=== PATIENT | male | born 1995 | race Caucasian/White ===

== ENCOUNTER 2016-08-14 17:02 | Emergency (ER) | payer SELFPAY ==
--- NOTE | 2016-08-14 17:26 | ER Document Report ---
ED Medical Screen (RME) - General Stated Complaint: POSSIBLE SEIZURE Notes: 4pm in the afternoon fainted no h/o seizures has not been drinking fluids the past two days no headache, no confusion No past medical history, no medications ,no past surgical history - Related Data Allergies/Adverse Reactions: No Known Allergies Allergy (Verified 08/14/16 17:18)
[2016-08-14 18:18] LABS: ABSOLUTE EOSINOPHILS # (AUTO) 0.1 10^3/uL (0.0-0.6); ABSOLUTE LYMPHOCYTES (AUTO) 0.9 10^3/uL (0.5-4.7); ABSOLUTE MONOCYTES (AUTO) 0.8 10^3/uL (0.1-1.4); ABSOLUTE NEUT (AUTO) 9.6 10^3/uL (1.7-8.2); BASOPHILS % (AUTO) 0.2 % (0-2); EOSINOPHILS % (AUTO) 0.7 % (0-6); HEMATOCRIT 44.6 % (37.9-51.0); HEMOGLOBIN 14.9 g/dL (13.5-17.0); HGB HCT DIFFERENCE 0.1; LYMPHOCYTES % (AUTO) 7.8 % (13-45); MEAN CORPUSCULAR HEMOGLOBIN 27.1 pg (27.0-33.4); MEAN CORPUSCULAR HGB CONC 33.5 g/dL (32.0-36.0); MEAN CORPUSCULAR VOLUME 81 fl (80-97); MONOCYTES % (AUTO) 6.8 % (3-13); RED BLOOD COUNT 5.52 10^6/uL (4.35-5.55); RED CELL DISTRIBUTION WIDTH 13.1 % (11.5-14.0); SEGMENTED NEUTROPHILS % (AUTO) 84.5 % (42-78); WHITE BLOOD COUNT 11.3 10^3/uL (4.0-10.5)
[2016-08-14 18:42] LABS: ALANINE AMINOTRANSFERASE 62 U/L (21-72); ALBUMIN 4.3 g/dL (3.5-5.0); ALKALINE PHOSPHATASE 61 U/L (38-126); ANION GAP 11 (5-19); ASPARTATE AMINO TRANSFERASE 34 U/L (17-59); BILIRUBIN,TOTAL 0.6 mg/dL (0.2-1.3); BLOOD UREA NITROGEN 10 mg/dL (7-20); CALCIUM 9.2 mg/dL (8.4-10.2); CARBON DIOXIDE 28 mmol/L (22-30); CHLORIDE 101 mmol/L (98-107); CREATININE RESULT 0.95 mg/dL (0.52-1.25); GLUCOSE 93 mg/dL (75-110); POTASSIUM 4.2 mmol/L (3.6-5.0); SODIUM 140.4 mmol/L (137-145); TOTAL PROTEIN 7.1 g/dL (6.3-8.2)
[2016-08-14 20:45] LABS: APPEARANCE,URINE CLEAR; BILIRUBIN,URINE NEGATIVE (NEGATIVE); GLUCOSE, URINE NEGATIVE (NEGATIVE); KETONES,URINE NEGATIVE (NEGATIVE); LEUKOCYTE ESTERASE,URINE NEGATIVE (NEGATIVE); NITRITE,URINE NEGATIVE (NEGATIVE); PROTEIN,URINE NEGATIVE (NEGATIVE); URINE SPECIFIC GRAVITY 1.014; UROBILINOGEN,URINE NEGATIVE mg/dL (<2.0)
[2016-08-14 22:06] LABS: URINE BARBITURATES SCREEN NEGATIVE; URINE METHADONE SCREEN NEGATIVE; URINE PHENCYCLIDINE SCREEN NEGATIVE
--- NOTE | 2016-08-14 22:54 | ER Document Report ---
[id number] 4d Patient TRAVEL OUTSIDE OF THE [place] IN LAST 30 DAYS: No - HPI Patient complains to provider of: Fainting <FELICIA RAO - Last Filed: 08/15/16 00:23> <NARESH MELARA - Last Filed: 08/17/16 01:24> - General Chief Complaint: Passed Out Prior to Arrival Stated Complaint: POSSIBLE SEIZURE Time Seen by Provider: 08/14/16 17:19 Notes: Patient is a 21-year-old male that presents to the emergency department today with complaints of a questionable seizure or syncopal episode prior to arrival. Patient states he was at work, he felt dizzy, "things got loud", and the next thing he remembers he woke up on the floor in a tipped over chair. Mother at bedside also works in close proximity to the patient, she states he was " foaming at the mouth" and seemed disoriented. Patient states he has 1/10 low back pain from the fall. Patient denies a history of seizures. Patient had no chest pain or shortness of breath prior to this episode or after this episode. ( FELICIA RAO) - Related Data Allergies/Adverse Reactions: No Known Allergies Allergy (Verified 08/14/16 17:18) Past Medical History - General Information source: Patient - Social History Smoking Status: Unknown if Ever Smoked Chew tobacco use (# tins/day): No Frequency of alcohol use: Occasional Drug Abuse: None Lives with: Family Family History: Reviewed & Not Pertinent Patient has suicidal ideation: No Patient has homicidal ideation: No - Medical History Medical History: Negative Surgical Hx: Negative <FELICIA RAO - Last Filed: 08/15/16 00:23> Review of Systems - Review of Systems Constitutional: No symptoms reported EENT: No symptoms reported Cardiovascular: See HPI, Syncope. denies: Chest pain Respiratory: denies: Short of breath Gastrointestinal: No symptoms reported Genitourinary: No symptoms reported Male Genitourinary: No symptoms reported Musculoskeletal: No symptoms reported Skin: No symptoms reported Hematologic/Lymphatic: No symptoms reported Neurological/Psychological: See HPI, Seizure - possible?, Headaches - after episode -: Yes All other systems reviewed and negative <FELICIA RAO - Last Filed: 08/15/16 00:23> Physical Exam <FELICIA RAO - Last Filed: 08/15/16 00:23> <NARESH MELARA - Last Filed: 08/17/16 01:24> - Vital signs Vitals: Temp Pulse Resp BP Pulse Ox 97.6 F 107 H 20 181/83 H 96 08/14/16 17:23 08/14/16 17:23 08/14/16 17:23 08/14/16 17:23 08/14/16 17:23 (FELICIA RAO) (NARESH MELARA) - Notes Notes: Physical Exam: General: Alert, appears well. HEENT: Normocephalic. Atraumatic. PERRL. Extraocular movements intact. Oropharynx clear. Neck: Supple. Non-tender. Respiratory: No respiratory distress. Clear and equal breath sounds bilaterally. Cardiovascular: Regular rate and rhythm. Abdominal: Normal Inspection. Non-tender. No distension. Normal Bowel Sounds. Back: Non-tender. No deformity or step off. Extremities: Moves all four extremities. Upper extremities: Normal inspection. Non-tender.Normal ROM. Lower extremities: Normal inspection.No edema. Normal ROM. Neurological: Normal cognition. AAOx4. Normal speech. Psychological: Normal affect. Normal Mood. Skin: Warm. Dry. Normal color. (FELICIA RAO) Course - Laboratory Result Diagrams: 08/14/16 17:49 08/14/16 17:49 <FELICIA RAO - Last Filed: 08/15/16 00:23> - Laboratory Result Diagrams: 08/14/16 17:49 08/14/16 17:49 <NARESH MELARA - Last Filed: 08/17/16 01:24> - Re-evaluation Re-evalutation: 08/14/16 23:04 I personally performed the services described in the documentation, reviewed and edited the documentation which was dictated to my scribe in my presence, and it accurately records my words and actions. Patient presents the emergency department after an episode of passing out. Patient was feeling normal sitting and is best that he had eaten all day follow lightheaded and dizzy next thing he knew he was on the ground there was a bunch people around him. His mom who works in the mall 70 feet away said the security door installer came and got her when she got there he had some saliva on his salazar and was confused for a brief period of time they did not witness seizure activity nor was he incontinent. Does not have a history of a seizure disorder he denied any chest pain trouble breathing headache prior to the event. He denies any headache blurred vision double vision chest pain or shortness of breath. On examination he is well-appearing nontoxic in no acute distress vital signs are stable no neurological deficits normal exam. EKG is nonacute. tachycardic on exam. mother on coumadin with history factor 5 deficiency. Negative acute PE study. Patient well-appearing nontoxic episode is either seizure or syncope. No acute cardiac arrhythmias chest pain or pulmonary emboli we'll DC 1-2 day primary care follow-up and discuss reasons for ED return sooner 08/15/16 00:12 (NARESH MELARA) - Vital Signs Vital signs: Temp Pulse Resp BP Pulse Ox 98.0 F 93 14 173/103 H 99 08/15/16 00:25 08/15/16 00:25 08/15/16 00:25 08/15/16 00:25 08/15/16 00:25 (FELICIA RAO) (NARESH MELARA) - Laboratory Laboratory results interpreted by me: 08/14/16 17:49 WBC 11.3 H Seg Neutrophils % 84.5 H Lymphocytes % 7.8 L Absolute Neutrophils 9.6 H (FELICIA RAO) (NARESH MELARA) Discharge <FELICIA RAO - Last Filed: 08/15/16 00:23> <NARESH MELARA - Last Filed: 08/17/16 01:24> - Discharge Clinical Impression: syncope versus seizure Condition: Stable Disposition: HOME, SELF-CARE Additional Instructions: Syncopal Episode versus seizure Syncope (fainting or near-fainting) can occur from many different health problems. Or it can be a simple fainting spell requiring no treatment. It is safe for you to go home, but further evaluation will likely be necessary. Your work-up may include tests for internal bleeding, heart disease, medication problems, or near-strokes. Tests are not always required, however, depending on the nature of your problem. The warning signs of an impending faint include: dizziness, lightheadedness , nausea, hot flashes, tingling, and weakness. If this happens, lay down and put your feet up, then wait until all of these symptoms have passed before standing up again. If these episodes become recurrent, or if you develop chest pain, heart palpitations, mental confusion, blurred vision, or headache, then you should call the physician, or go to the emergency room. Referrals: [facility] [Provider Group] - Follow up in 3-5 days (in 2-3 days return to er sooner for increasing worsening or new symptoms) Scribe Documentation <FELICIA RAO - Last Filed: 08/15/16 00:23> <NARESH MELARA - Last Filed: 08/17/16 01:24> - Scribe Written by Scribe:: Leon (FELICIA RAO)
[2016-08-15 00:33] VITALS: BP 173/103
--- NOTE | 2016-08-15 07:58 | EKG REPORT ---
SEVERITY:- NORMAL ECG - SINUS RHYTHM : Confirmed by: Kota Wills MD 15-Aug-2016 07:57:27
== END 2016-08-15 00:15 | disposition home or self-care (01) ==
LOC: ER 17:02
DX: R42 Dizziness and giddiness (principal); M54.5 Low back pain; W19.XXXA Unspecified fall, initial encounter; Y92.59 Other trade areas as the place of occurrence of the external cause; Y99.0 Civilian activity done for income or pay; Z83.2 Family history of diseases of the blood and blood-forming organs and certain disorders involving the immune mechanism
CPT/HCPCS: 36415; 70450; 71010; 71260; 80053; 80307; 81001; 85025; 93005; 93010; 99285

== ENCOUNTER 2017-03-26 10:30 | Emergency (ER) | payer SELFPAY ==
--- NOTE | 2017-03-26 10:44 | ER Document Report ---
ED Seizure - General Stated Complaint: POSSIBLE SEIZURE Time Seen by Provider: 03/26/17 10:35 Mode of Arrival: Medic Information source: Patient, Emergency Med Personnel TRAVEL OUTSIDE OF THE [place] IN LAST 30 DAYS: No - HPI Patient complains to provider of: History of seizures Number of episodes: 2 Time of onset: This morning Duration: Unsure Quality of pain: No pain Severity: None Continued on arrival to ED: No Can details of seizure be obtained/verified: Yes Episode witnessed (by whom): Yes - Family Current seizure medications: Other - None Preceding symptoms/context: denies: Recent illness/fever, Recent alcohol intake , Recent drug use, Sleep deprivation, Missed dose of meds, Changed meds or dosage, Somnolence History of: denies: Brain tumor or mets, CVA, Hydrocephalus, Migraines, TBI, V/ P shunt Character of seizure: Generalized shaking Post-ictal symptoms: Confusion Injuries: Head Treatment FUR REPAIRER: No: Advanced airway, Ativan, Valium Associated Symptoms: None Notes: 22-year-old male who states he had a previous seizure back in July with no known diagnosis made. Patient has been fine since that time. Today while getting ready to take a shower patient reportedly had a grand mal seizure lasting about 30 seconds. States he had a second 1 later on but does not recall that one at all. Only injury reported is hitting his head. He has not been ill, he has not had fevers, denies trauma, denies drug use, and otherwise has been well prior to the seizure this morning. At the time of his ED arrival , he is without complaints. - Related Data Allergies/Adverse Reactions: No Known Allergies Allergy (Verified 08/14/16 17:18) Past Medical History - General Information source: Patient, Emergency Med Personnel - Social History Smoking Status: Never Smoker Frequency of alcohol use: Rare Drug Abuse: None Lives with: Family Family History: Reviewed & Not Pertinent Patient has suicidal ideation: No Patient has homicidal ideation: No - Medical History Medical History: Negative Renal/ Medical History: Denies: Hx Peritoneal Dialysis - Immunizations Hx Diphtheria, Pertussis, Tetanus Vaccination: Yes Review of Systems - Review of Systems Neurological/Psychological: Seizure -: Yes All other systems reviewed and negative Physical Exam - Vital signs Vitals: Temp Pulse Resp BP Pulse Ox 98.1 F 84 15 148/69 H 98 03/26/17 10:41 03/26/17 10:41 03/26/17 10:41 03/26/17 10:41 03/26/17 10:41 Interpretation: Normal - General General appearance: Appears well, Alert In distress: None - HEENT Head: Normocephalic, Atraumatic Eyes: Normal Pupils: PERRL Mouth/Lips: Normal, Other - No intraoral trauma Mucous membranes: Normal Pharynx: Normal - Respiratory Respiratory status: No respiratory distress Chest status: Nontender Breath sounds: Normal Chest palpation: Normal - Cardiovascular Rhythm: Regular Heart sounds: Normal auscultation Murmur: No - Abdominal Inspection: Normal Distension: No distension Bowel sounds: Normal Tenderness: Nontender Organomegaly: No organomegaly - Extremities General upper extremity: Normal inspection, Nontender, Normal color, Normal ROM , Normal temperature General lower extremity: Normal inspection, Nontender, Normal color, Normal ROM , Normal temperature, Normal weight bearing. No: Christian's sign - Neurological Neuro grossly intact: Yes Cognition: Normal Orientation: AAOx4 Scotty Coma Scale Eye Opening: Spontaneous Scotty Coma Scale Verbal: Oriented Scotty Coma Scale Motor: Obeys Commands Scotty Coma Scale Total: 15 Speech: Normal Motor strength normal: LUE, RUE, LLE, RLE Sensory: Normal - Skin Skin Temperature: Warm Skin Moisture: Dry Skin Color: Normal Course - Re-evaluation Re-evalutation: 03/26/17 11:45 Emergency Department workup is unremarkable. There is been no further seizure activity since ED arrival. Discussed need for primary care follow-up. Would prefer not to start on antiepileptics until he is seen by a neurologist and the seizures continue to occur. This is been discussed with patient and he will try to obtain neurology follow-up. - Vital Signs Vital signs: Temp Pulse Resp BP Pulse Ox 98.1 F 84 15 148/69 H 98 03/26/17 10:41 03/26/17 10:41 03/26/17 10:41 03/26/17 10:41 03/26/17 10:41 - Laboratory Result Diagrams: 03/26/17 10:40 03/26/17 10:40 Laboratory results interpreted by me: 03/26/17 03/26/17 10:40 10:40 WBC 14.2 H Seg Neuts % (Manual) 86 H Band Neutrophils % 1 L Lymphocytes % (Manual) 6 L Abs Neuts (Manual) 12.4 H Carbon Dioxide 18 L Glucose 121 H - Diagnostic Test Radiology reviewed: Reports reviewed - ct head neg per rads Discharge - Discharge Clinical Impression: Seizure Condition: Good Disposition: HOME, SELF-CARE Instructions: New Seizure ([facility]) Additional Instructions: Follow-up with neurology in the next several days for further evaluation of your seizure. Return to the emergency department if worse or for any other problems. Referrals: DOE CORTEZ MD [ACTIVE STAFF] - Follow up as needed
[2017-03-26 11:05] LABS: HEMATOCRIT 43.1 % (37.9-51.0); HEMOGLOBIN 14.8 g/dL (13.5-17.0); HGB HCT DIFFERENCE 1.3; MEAN CORPUSCULAR HEMOGLOBIN 28.8 pg (27.0-33.4); MEAN CORPUSCULAR HGB CONC 34.5 g/dL (32.0-36.0); MEAN CORPUSCULAR VOLUME 84 fl (80-97); RED BLOOD COUNT 5.15 10^6/uL (4.35-5.55); RED CELL DISTRIBUTION WIDTH 12.7 % (11.5-14.0); WHITE BLOOD COUNT 14.2 10^3/uL (4.0-10.5)
--- NOTE | 2017-03-26 11:06 | RADIOLOGY REPORT (SQ) ---
EXAM DESCRIPTION: CT HEAD WITHOUT COMPLETED DATE/TIME: 03/26/2017 10:58 am REASON FOR STUDY: new onset sz COMPARISON: 08/14/2016 TECHNIQUE: Axial images acquired through the brain without intravenous contrast. Images reviewed wi th bone, brain and subdural windows. Images stored on PACS. All CT scanners at this facility use dose modulation, iterative reconstruction, and/or weight based d osing when appropriate to reduce radiation dose to as low as reasonably achievable (ALARA). [facility]: Dose Right [facility]: CareDose [facility]: Dose Right [facility]: Teradose 4D [facility]: Smart Rupeetalk RADIATION DOSE: Up-to-date CT equipment and radiation dose reduction techniques were employed. CTDIv ol: 64.6 mGy. DLP: 1163 mGy-cm. mGy. LIMITATIONS: None. FINDINGS: VENTRICLES: Normal size and contour. CEREBRUM: No masses. No hemorrhage. No midline shift. No evidence for acute infarction. Normal gra y/white matter differentiation. No areas of low density in the white matter. CEREBELLUM: No masses. No hemorrhage. No alteration of density. No evidence for acute infarction. EXTRAAXIAL SPACES: No fluid collections. No masses. ORBITS AND GLOBE: No intra- or extraconal masses. Normal contour of globe without masses. CALVARIUM: No fracture. PARANASAL SINUSES: No fluid or mucosal thickening. SOFT TISSUES: No mass or hematoma. OTHER: No other significant finding. IMPRESSION: NORMAL BRAIN CT WITHOUT CONTRAST. COMMENT: Quality ID # [id number]: Final reports with documentation of one or more dose reduction techniques (e.g., Automated exposure control, adjustment of the mA and/or kV according to patient size, use of iterative reconstruction technique) TECHNICAL DOCUMENTATION: JOB ID: [id number] [email or web address]- All Rights Reserved
[2017-03-26 11:29] LABS: ALANINE AMINOTRANSFERASE 38 U/L (21-72); ALBUMIN 4.6 g/dL (3.5-5.0); ALKALINE PHOSPHATASE 65 U/L (38-126); ASPARTATE AMINO TRANSFERASE 42 U/L (17-59); BILIRUBIN,DIRECT 0.4 mg/dL (0.0-0.4); BILIRUBIN,TOTAL 0.5 mg/dL (0.2-1.3); BLOOD UREA NITROGEN 14 mg/dL (7-20); CALCIUM 9.5 mg/dL (8.4-10.2); CREATININE RESULT 1.18 mg/dL (0.52-1.25); GLUCOSE 121 mg/dL (75-110); POTASSIUM 4.5 mmol/L (3.6-5.0); TOTAL PROTEIN 7.8 g/dL (6.3-8.2)
[2017-03-26 11:38] LABS: ANION GAP 18 (5-19); CARBON DIOXIDE 18 mmol/L (22-30); CHLORIDE 107 mmol/L (98-107); SODIUM 142.7 mmol/L (137-145)
[2017-03-26 11:40] LABS: BAND NEUTROPHILS % (MANUAL) 1 % (3-5); BASOPHILS % (MANUAL) 0 % (0-2); EOSINOPHILS % (MANUAL) 0 % (0-6); LYMPHOCYTES % (MANUAL) 6 % (13-45); TOTAL CELLS COUNTED 100; TOXIC VACUOLATION PRESENT
[2017-03-26 11:42] LABS: PLATELET CLUMPS PRESENT
[2017-03-26 11:43] LABS: RBC MORPHOLOGY COMMENT NORMO-CYTIC/CHROMIC
[2017-03-26 12:00] VITALS: BP 123/70
== END 2017-03-26 12:00 | disposition home or self-care (01) ==
LOC: ER 10:30
DX: R56.9 Unspecified convulsions (principal)
CPT/HCPCS: 36415; 70450; 80053; 85025; 99284

== ENCOUNTER 2017-04-21 17:34 | Emergency (ER) | payer SELFPAY ==
--- NOTE | 2017-04-21 17:45 | ER Document Report ---
ED Seizure - General Stated Complaint: POSSIBLE SEIZURE Time Seen by Provider: 04/21/17 17:43 Mode of Arrival: Medic Information source: Patient, Emergency Med Personnel - HPI Patient complains to provider of: History of seizures - HAS HAD SEVERAL, 2 LAST WEEK. HAS BEEN SEEN IN [facility] TWICE BEFORE FOR SAME Number of episodes: 1 Time of onset: 1650 Duration: ? Quality of pain: Dull Severity: Mild Continued on arrival to ED: No Can details of seizure be obtained/verified: Yes Episode witnessed (by whom): Yes - [employer] Current seizure medications: No: Carbamazepine, Gabatin, Keppra, Lamictal, Phenytoin, Phenobarbital, Trileptal, Valproic acid, Vimpat, Other Preceding symptoms/context: denies: Recent illness/fever, Recent alcohol intake , Recent drug use, Sleep deprivation, Missed dose of meds, Changed meds or dosage, Somnolence History of: denies: Brain tumor or mets, CVA, Hydrocephalus, Migraines, TBI, V/ P shunt Character of seizure: Complete loss/conscious, Generalized shaking, Incontinent bladder Post-ictal symptoms: Confusion, Headache Injuries: Head Associated Symptoms: Memory loss - Related Data Allergies/Adverse Reactions: No Known Allergies Allergy (Verified 08/14/16 17:18) Past Medical History - General Information source: Patient - Social History Smoking Status: Never Smoker Cigarette use (# per day): No Chew tobacco use (# tins/day): No Frequency of alcohol use: None Drug Abuse: Marijuana - RARELY Lives with: Family Family History: Reviewed & Not Pertinent Patient has suicidal ideation: No Patient has homicidal ideation: No - Past Medical History Cardiac Medical History: Reports: Hx Hypertension Pulmonary Medical History: Reports: None EENT Medical History: Reports: None Neurological Medical History: Reports: None Endocrine Medical History: Reports: None Renal/ Medical History: Reports: None. Denies: Hx Peritoneal Dialysis Malignancy Medical History: Reports None GI Medical History: Reports: None Musculoskeltal Medical History: Reports None Skin Medical History: Reports None Psychiatric Medical History: Reports: None Traumatic Medical History: Reports: None Surgical Hx: Negative - Immunizations Hx Diphtheria, Pertussis, Tetanus Vaccination: Yes Review of Systems - Review of Systems Constitutional: No symptoms reported EENT: No symptoms reported Cardiovascular: No symptoms reported Respiratory: No symptoms reported Gastrointestinal: No symptoms reported Genitourinary: See HPI Musculoskeletal: No symptoms reported Skin: No symptoms reported Neurological/Psychological: See HPI Physical Exam - Vital signs Interpretation: Tachycardic - General General appearance: Appears well, Alert In distress: None - HEENT Head: Tenderness - AND CONTUSION R. FRONTAL. No: Atraumatic Eyes: Normal Conjunctiva: Normal Pupils: PERRL Ears: Normal Nasal: Normal Mouth/Lips: Normal Mucous membranes: Normal Pharynx: Normal Neck: Normal, Supple - Respiratory Respiratory status: No respiratory distress Breath sounds: Normal - Cardiovascular Rhythm: Regular Heart sounds: Normal auscultation Murmur: No - Abdominal Inspection: Normal, Obese Bowel sounds: Normal - Back Back: Normal - Extremities General upper extremity: Normal inspection General lower extremity: Normal inspection - Neurological Neuro grossly intact: Yes Cognition: Normal Orientation: AAOx4 - Psychological Associated symptoms: Normal affect, Normal mood - Skin Skin Temperature: Warm Skin Moisture: Dry Skin Color: Normal Skin Turgor: Elastic Skin irregularity: Tender indurated area - R. FRONTAL Location of irregularity: Face Course - Laboratory Result Diagrams: 04/21/17 17:45 04/21/17 17:45 Laboratory results interpreted by me: 04/21/17 04/21/17 17:45 17:45 [facility] 36.1 H Glucose 112 H Discharge - Discharge Clinical Impression: Seizure disorder Condition: Stable Disposition: HOME, SELF-CARE Instructions: New Seizure ([facility]) Additional Instructions: TAKE KEPPRA DIRECTED. CONTINUE LISINOPRIL BEFORE. FOLLOW UP WITH WITH , OR WITH [facility]. YOU MAY NEED REFERRAL TO A NEUROLOGIST AND FURTHER TESTING. Prescriptions: Levetiracetam [Keppra 500 mg Tablet] 500 mg PO Q12 #60 tablet Referrals: SETH BURTON DO [NO LOCAL MD] - Follow up as needed [facility] [Provider Group] - Follow up as needed
[2017-04-21] MEDS ORDERED: LEVETIRACETAM 500 MG TABLET PO ONE (18:09)
[2017-04-21 19:03] LABS: ABSOLUTE EOSINOPHILS # (AUTO) 0.1 10^3/uL (0.0-0.6); ABSOLUTE LYMPHOCYTES (AUTO) 1.6 10^3/uL (0.5-4.7); ABSOLUTE MONOCYTES (AUTO) 0.6 10^3/uL (0.1-1.4); ABSOLUTE NEUT (AUTO) 4.9 10^3/uL (1.7-8.2); BASOPHILS % (AUTO) 0.3 % (0-2); EOSINOPHILS % (AUTO) 1.3 % (0-6); HEMATOCRIT 41.1 % (37.9-51.0); HEMOGLOBIN 14.8 g/dL (13.5-17.0); HGB HCT DIFFERENCE 3.3; LYMPHOCYTES % (AUTO) 22.5 % (13-45); MEAN CORPUSCULAR HEMOGLOBIN 29.2 pg (27.0-33.4); MEAN CORPUSCULAR HGB CONC 36.1 g/dL (32.0-36.0); MEAN CORPUSCULAR VOLUME 81 fl (80-97); MONOCYTES % (AUTO) 8.2 % (3-13); RED BLOOD COUNT 5.07 10^6/uL (4.35-5.55); RED CELL DISTRIBUTION WIDTH 12.5 % (11.5-14.0); SEGMENTED NEUTROPHILS % (AUTO) 67.7 % (42-78); WHITE BLOOD COUNT 7.3 10^3/uL (4.0-10.5)
[2017-04-21 19:07] LABS: ALANINE AMINOTRANSFERASE 43 U/L (21-72); ALBUMIN 4.4 g/dL (3.5-5.0); ALKALINE PHOSPHATASE 61 U/L (38-126); ANION GAP 16 (5-19); ASPARTATE AMINO TRANSFERASE 25 U/L (17-59); BILIRUBIN,DIRECT 0.4 mg/dL (0.0-0.4); BILIRUBIN,TOTAL 0.5 mg/dL (0.2-1.3); BLOOD UREA NITROGEN 14 mg/dL (7-20); CALCIUM 9.6 mg/dL (8.4-10.2); CARBON DIOXIDE 22 mmol/L (22-30); CHLORIDE 104 mmol/L (98-107); CREATININE RESULT 1.03 mg/dL (0.52-1.25); GLUCOSE 112 mg/dL (75-110); SODIUM 141.5 mmol/L (137-145); TOTAL PROTEIN 7.4 g/dL (6.3-8.2)
[2017-04-21 19:24] LABS: APPEARANCE,URINE CLEAR; BILIRUBIN,URINE NEGATIVE (NEGATIVE); GLUCOSE, URINE NEGATIVE (NEGATIVE); KETONES,URINE NEGATIVE (NEGATIVE); LEUKOCYTE ESTERASE,URINE NEGATIVE (NEGATIVE); NITRITE,URINE NEGATIVE (NEGATIVE); PROTEIN,URINE 30 mg/dL (NEGATIVE); URINE SPECIFIC GRAVITY 1.013; UROBILINOGEN,URINE NEGATIVE mg/dL (<2.0)
[2017-04-21 19:43] VITALS: BP 128/69
[2017-04-21 19:48] LABS: URINE BARBITURATES SCREEN NEGATIVE; URINE METHADONE SCREEN NEGATIVE; URINE OPIATES LOW NEGATIVE; URINE PHENCYCLIDINE SCREEN NEGATIVE
== END 2017-04-21 19:46 | disposition home or self-care (01) ==
LOC: ER 17:34
DX: G40.909 Epilepsy, unspecified, not intractable, without status epilepticus (principal)
CPT/HCPCS: 36415; 80053; 80307; 81001; 85025; 99284